=== PATIENT | female | born 2000 | race Caucasian/White ===

== ENCOUNTER 2024-04-05 21:29 | Inpatient (IN) | payer MEDICAID ==
[2024-04-05] MEDS ORDERED: Sodium Chloride 0.9% 10 ML Syringe FLUSH PRN (21:57)
[2024-04-05] MEDS ORDERED: ceFAZolin 2 GM in Sodium Chloride 0.9% 50 ML IV ONE (21:57)
[2024-04-05] MEDS ORDERED: Oxytocin/Lactated Ringers 30 UNIT/500 ML BAG IV SCH (22:00)
[2024-04-05] MEDS ORDERED: Lactated Ringers 1,000 ML ONE (22:24)
[2024-04-05] MEDS ORDERED: Ketorolac 30 MG/ML SDV ONE (22:24)
[2024-04-05] MEDS ORDERED: Ondansetron 4 MG/2 ML SDV ONE (22:24)
[2024-04-05] MEDS ORDERED: Morphine PF 10 MG/10 ML SDV ONE (22:25)
[2024-04-05] MEDS ORDERED: ceFAZolin 2 GM Vial ONE (22:28)
[2024-04-05] MEDS: Citric Acid/Sodium Citrate Solution 30 ML Cup PO ONE (22:34)
[2024-04-05] MEDS: Lactated Ringers 1,000 ML IV SCH (22:34)
[2024-04-05] MEDS: Metoclopramide 10 MG/2 ML SDV IVPUSH ONE (22:36)
[2024-04-05] MEDS ORDERED: Ondansetron 4 MG/2 ML SDV IVPUSH PRN (22:36)
[2024-04-05] MEDS ORDERED: diphenhydrAMINE 50 MG/ML SDV IVPUSH PRN (22:36)
[2024-04-05] MEDS ORDERED: fentaNYL 100 MCG/2 ML SDV IVPUSH PRN (22:36)
[2024-04-05] MEDS ORDERED: Meperidine 50 MG/ML Vial IVPUSH PRN (22:36)
[2024-04-05] MEDS ORDERED: Phenylephrine 1% 10 MG/ML SDV ONE (23:17)
[2024-04-06] MEDS ORDERED: Lactated Ringers 1,000 ML ONE (00:01)
[2024-04-06] MEDS ORDERED: ePHEDrine 50 MG/ML SDV IVPUSH PRN (00:26)
[2024-04-06] MEDS ORDERED: Naloxone 0.4 MG/ML SDV IVPUSH PRN (00:26)
[2024-04-06] MEDS ORDERED: Lactated Ringers 1,000 ML IV SCH (00:45)
[2024-04-06] MEDS: Docusate Sodium 100 MG Cap PO SCH (02:03)
[2024-04-06] MEDS: Acetaminophen 325 MG Tab PO SCH (02:48)
[2024-04-06] MEDS: Ibuprofen 800 MG Tab PO SCH (03:05)
[2024-04-06] MEDS: Dextrose 5%-Lactated Ringers 1,000 ML IV SCH (03:06)
[2024-04-06] MEDS: Nicotine 21 MG/24 Hr Patch TRDERM SCH (08:55)
[2024-04-06] MEDS: Sodium Chloride 0.9% 10 ML Syringe FLUSH SCH (09:00)
[2024-04-06] MEDS: oxyCODONE 5 MG Tab PO PRN (14:12)
[2024-04-06] MEDS: diphenhydrAMINE 50 MG/ML SDV IVPUSH PRN (14:15)
[2024-04-06] MEDS: Simethicone 80 MG Tab.Chew PO PRN (15:04)
[2024-04-06] MEDS: Amoxicillin 500 MG Cap PO SCH (19:30)
[2024-04-07 05:57] LABS: BASOPHILS PERCENT AUTO 0.3 % (0.0-1.0); EOSINOPHILS ABSOLUTE AUTO 0.2 K/mm3 (0.0-0.4); EOSINOPHILS PERCENT AUTO 1.9 % (0.0-6.0); HEMATOCRIT 25.8 % (37.0-47.0); HEMOGLOBIN 8.4 gm/dl (12.0-16.0); IMMATURE GRAN ABSOLUTE AUTO 0.09 K/mm3 (0.00-0.05); IMMATURE GRAN PERCENT AUTO 0.8 % (0.0-0.4); LYMPHOCYTES ABSOLUTE AUTO 3.7 K/mm3 (1.0-4.8); LYMPHOCYTES PERCENT AUTO 33.6 % (24.0-44.0); MEAN CORPUSCULAR HEMOGLOBIN 27.5 pg (28.0-32.0); MEAN CORPUSCULAR HGB CONC 32.6 g/dl (32.0-36.0); MEAN CORPUSCULAR VOLUME 84.6 fl (83.0-99.0); MEAN PLATELET VOLUME 10.4 fl (9.4-12.3); MONOCYTES ABSOLUTE AUTO 0.7 K/mm3 (0.0-0.8); MONOCYTES PERCENT AUTO 6.5 % (0.0-8.0); NEUTROPHILS ABSOLUTE AUTO 6.3 K/mm3 (1.8-7.7); NEUTROPHILS PERCENT AUTO 56.9 % (41.0-71.0); PLATELET COUNT,PLT 220 K/mm3 (150-400); RED BLOOD CELL COUNT 3.05 M/mm3 (4.10-5.30); WHITE BLOOD CELL COUNT,WBC 11.07 K/mm3 (3.9-11.3)
[2024-04-08] MEDS ORDERED: Ferrous Sulfate 324 MG Tab.EC PO SCH (07:00)
== END 2024-04-07 11:20 | disposition home or self-care (01) | DRG 787 ==
LOC: JD.OBCHECK 21:29 → JD.OB 21:30 → JD.OBCHECK 21:56 → JD.OB 21:57
PROVIDERS: ADMIT Obstetrics & Gynecology; ATTEND Obstetrics & Gynecology
PROC: 10D00Z1 Extraction of Products of Conception, Low, Open Approach (ICD-10-PCS; principal; 2024-04-06 00:15)
DX: O34.211 Maternal care for low transverse scar from previous cesarean delivery (principal); D62 Acute posthemorrhagic anemia; Z3A.37 37 weeks gestation of pregnancy; Z37.0 Single live birth; O99.824 Streptococcus B carrier state complicating childbirth; O69.81X0 Labor and delivery complicated by cord around neck, without compression, not applicable or unspecified; O90.81 Anemia of the puerperium
CPT/HCPCS: 36415; 59025; 85025; 86592; 86803; 86850; 86900; 86901; 94762; A9270-GY; J0690; J1200; J1885; J2274; J2371; J2405; J2765; J7120; J7121; J7999